=== PATIENT | female | born 1960 ===

== ENCOUNTER → 2019-07-07 | Outpatient (CLI) | payer OTHER ==
--- NOTE | 2019-07-10 08:47 | REP ---
Left knee series: Five views. History: Pain in the left knee. No recent injury. Findings: Overall mineralization pattern is normal. There is no evidence of joint effusion or erosive change. No arthropathy is seen. Joint spaces are preserved. Alignment is normal. Impression: Negative radiographs of the left knee. Electronically Signed by Emory Patel MD 07/07/2019 03:37 P
== END ==
LOC: M ADAMS 15:16
PROVIDERS: ATTEND Physician Assistant Medical
DX: M25.562 Pain in left knee (principal)